=== PATIENT | male | born 1955 | race African-American/Black ===

== ENCOUNTER 2016-12-28 07:39 | Emergency (ER) | payer SELFPAY ==
[~2016-12-28] VITALS: Ht 190.5 cm; Wt 80.0 kg
[~2016-12-28 07:39] MED LIST: QUET100 PO
[2016-12-28 07:40] VITALS: BP 148/74; PULSE 75; RESP 12; TEMP 98.3; O2SAT 97
--- NOTE | 2016-12-28 08:00 | PD ---
HPI Chief Complaint: Psychiatric Symptoms Time Seen by Provider: 07:54 Travel History International Travel<30 days: No Contact w/Intl Traveler<30days: No Traveled to known affect area: No History of Present Illness HPI Patient is a 61-year-old male who presents to emergency room with complaints of depression and suicidal ideation. Patient reports that he had been clean of drugs and alcohol and recently began using again as he has had a lot going on in his life. Patient reports that he lost his apartment, reports that his is in intermediate, patient reports that all this has left him to use drugs and alcohol. Patient reports that he used cocaine last night as well as drink alcohol, reports that he is suicidal with no active plan for SI. Patient requesting help with this time. PFSH Past Medical History Autoimmune Disease: No Blood Disorders: No Anxiety: Yes Depression: Yes Cancer: No Cardiovascular Problems: No COPD: Yes Diabetes: No Diminished Hearing: No Endocrine: No Genitourinary: No Immune Disorder: No Musculoskeletal: No Neurologic: No Psychiatric: Yes (Per patient, "since he was young") Reproductive: No Respiratory: Yes Immunizations Current: Yes Seizures: No Thyroid Disease: No Past Surgical History Abdominal Surgery: Yes (UMBILICAL HERNIA REPAIR A CHILD) Other Surgery: Yes (INGUINAL HERNIA) Family History Family History: Negative Social History Alcohol Use: Yes Tobacco Use: Yes (1/2 PPD) Substance Use: Yes Allergies-Medications (Allergen,Severity, Reaction): Coded Allergies: No Known Allergies (Verified , 12/28/16) Reported Meds & Prescriptions Reported Meds & Active Scripts Active Quetiapine Fumarate 100 Mg Tab 100 Mg PO HS 30 Days Review of Systems General / Constitutional: No: Fever Eyes: No: Visual changes HENT: No: Headaches Cardiovascular: No: Chest Pain or Discomfort Respiratory: No: Shortness of Breath Gastrointestinal: No: Abdominal Pain Genitourinary: No: Dysuria Musculoskeletal: No: Pain Skin: No Rash Neurologic: No: Weakness Psychiatric: Positive: Anxiety, Depression, Suicidal Ideations, Substance Abuse Endocrine: No: Polydipsia Hematologic/Lymphatic: No: Easy Bruising Physical Exam Narrative GENERAL: No acute distress, nontoxic SKIN: Warm and dry. HEAD: Atraumatic. Normocephalic. EYES: Pupils equal and round. No scleral icterus. No injection or drainage. ENT: No nasal bleeding or discharge. Mucous membranes pink and moist. NECK: Trachea midline. No JVD. CARDIOVASCULAR: Regular rate and rhythm. No murmur appreciated. RESPIRATORY: No accessory muscle use. Clear to auscultation. Breath sounds equal bilaterally. GASTROINTESTINAL: Abdomen soft, non-tender, nondistended. Hepatic and splenic margins not palpable. MUSCULOSKELETAL: No obvious deformities. No clubbing. No cyanosis. No edema. NEUROLOGICAL: Awake and alert. No obvious cranial nerve deficits. Motor grossly within normal limits. Normal speech. PSYCHIATRIC: Depressed, positive for suicidal aerations, negative for homicidal ideations Data Data Last Documented VS Vital Signs Date Time Temp Pulse Resp B/P Pulse Ox O2 Delivery O2 Flow Rate FiO2 12/28/16 07:40 98.3 75 12 148/74 97 Room Air Orders Complete Blood Count With Diff (12/28/16 07:56) Comprehensive Metabolic Panel (12/28/16 07:56) Psych Screen (12/28/16 07:56) Alcohol (Ethanol) (12/28/16 07:56) Salicylates (Aspirin) (12/28/16 07:56) Tylenol (Acetaminophen) (12/28/16 07:56) Drug Screen, Random Urine (12/28/16 07:56) Labs Laboratory Tests Test 12/28/16 08:05 White Blood Count 6.8 TH/MM3 Red Blood Count 3.77 MIL/MM3 Hemoglobin 12.1 GM/DL Hematocrit 35.9 % Mean Corpuscular Volume 95.1 FL Mean Corpuscular Hemoglobin 32.2 PG Mean Corpuscular Hemoglobin 33.8 % Concent Red Cell Distribution Width 13.1 % Platelet Count 217 TH/MM3 Mean Platelet Volume 8.2 FL Neutrophils (%) (Auto) 62.7 % Lymphocytes (%) (Auto) 22.8 % Monocytes (%) (Auto) 7.5 % Eosinophils (%) (Auto) 6.2 % Basophils (%) (Auto) 0.8 % Neutrophils # (Auto) 4.3 TH/MM3 Lymphocytes # (Auto) 1.6 TH/MM3 Monocytes # (Auto) 0.5 TH/MM3 Eosinophils # (Auto) 0.4 TH/MM3 Basophils # (Auto) 0.1 TH/MM3 CBC Comment DIFF FINAL Differential Comment Sodium Level 134 MEQ/L Potassium Level 4.6 MEQ/L Chloride Level 102 MEQ/L Carbon Dioxide Level 23.3 MEQ/L Anion Gap 9 MEQ/L Blood Urea Nitrogen 26 MG/DL Creatinine 1.97 MG/DL Estimat Glomerular Filtration 42 ML/MIN Rate Random Glucose 72 MG/DL Calcium Level 9.0 MG/DL Total Bilirubin 1.0 MG/DL Aspartate Amino Transf 144 U/L (AST/SGOT) Alanine Aminotransferase 73 U/L (ALT/SGPT) Alkaline Phosphatase 80 U/L Total Protein 8.8 GM/DL Albumin 3.4 GM/DL Salicylates Level LESS THAN 1.7 MG/DL Acetaminophen Level LESS THAN 2.0 MCG/ML Ethyl Alcohol Level LESS THAN 3 MG/DL MDM Medical Decision Making Medical Screen Exam Complete: Yes Emergency Medical Condition: Yes Interpretation(s) NSR at 72bpm,qt/qtc: 430/455, no acute st or t wave changes Vital Signs Date Time Temp Pulse Resp B/P Pulse Ox O2 Delivery O2 Flow Rate FiO2 12/28/16 07:40 98.3 75 12 148/74 97 Room Air Differential Diagnosis Drug abuse, electrolyte abnormality, depression, suicidal ideation Narrative Course Patient is a 61-year-old male who presents to emergency room with complaints of suicidal evaluation. Patient reports that he relapsed and used a bunch of drugs as well as drank alcohol last night. Patient reports that he is suicidal with no active plan for suicide. Denies homicidal ideation. Patient here for help. Psychiatric screening labs ordered. Once medically cleared, will have patient seen by psychiatric screeners. Diagnosis Primary Impression: Depression Qualified Code: F32.9 - Depression, unspecified depression type Additional Impressions: Drug abuse Suicidal ideations Renal insufficiency Emmy Benjamin DO Dec 28, 2016 08:00
[2016-12-28 08:44] LABS: AUTOMATED NEUTROPHIL # 4.3 TH/MM3 (1.8-7.7); BASOPHIL # 0.1 TH/MM3 (0-0.2); BASOPHIL % 0.8 % (0.0-2.0); EOSINOPHIL # 0.4 TH/MM3 (0-0.4); EOSINOPHIL % 6.2 % (0.0-4.0); HEMATOCRIT 35.9 % (39.0-51.0); HEMO FLAGS DIFF FINAL; LYMPH % 22.8 % (9.0-44.0); LYMPHOCYTE # 1.6 TH/MM3 (1.0-4.8); MEAN CELL VOLUME 95.1 FL (80.0-100.0); MEAN CORPUSCULAR HEMOGLOBIN 32.2 PG (27.0-34.0); MEAN CORPUSCULAR HGB CONC 33.8 % (32.0-36.0); MONO % 7.5 % (0.0-8.0); NEUT % 62.7 % (16.0-70.0); PLATELET COUNT 217 TH/MM3 (150-450); RED BLOOD COUNT 3.77 MIL/MM3 (4.50-5.90); RED CELL DISTRIBUTION WIDTH 13.1 % (11.6-17.2); WHITE BLOOD COUNT 6.8 TH/MM3 (4.0-11.0)
[2016-12-28 09:07] LABS: ALKALINE PHOSPHATASE 80 U/L (45-117)
[2016-12-28 09:12] LABS: ACETAMINOPHEN LESS THAN 2.0 MCG/ML (10.0-30.0); ALT (GPT) 73 U/L (12-78); ANION GAP 9 MEQ/L (5-15); AST (GOT) 144 U/L (15-37); BICARBONATE 23.3 MEQ/L (21.0-32.0); BLOOD UREA NITROGEN 26 MG/DL (7-18); CHLORIDE 102 MEQ/L (98-107); GLOMERULAR FILTRATION RATE 42 ML/MIN (>89); POTASSIUM 4.6 MEQ/L (3.5-5.1); SODIUM (NA) 134 MEQ/L (136-145)
[2016-12-28 11:09] LABS: AMPHETAMINE, URINE NEG (NEG); BARBITURATES, URINE NEG (NEG); COCAINE, URINE POS (NEG)
--- NOTE | 2016-12-28 11:52 | PD ---
History of Present Illness Chief Complaint: Psychiatric Symptoms Time Seen by Provider: 11:30 Travel History International Travel<30 Days: No Contact w/Intl Traveler<30days: No Known affected area: No Legal Status Legal Status: Voluntary History of Present Illness: History of Present Illness HPI Patient is a 61-year-old male with history of substance abuse and substance induced mood disorder who presents to emergency room on a voluntary basis with complaints of depression and suicidal ideation. As per ED documentation included in this report he states that he had been clean of drugs and alcohol and recently began using again as he has had a lot going on in his life. Patient reports that he lost his apartment, reports that his is in senior care, patient reports that all this has left him to use drugs and alcohol. Patient's current toxicology is positive for cocaine. As per EMR review he was last hospitalized at [facility] [place] and treated for drug induced mood disorder. He has not followed up with discharge and aftercare . Patient is seen in main ED. Awake, alert and oriented. Appropriate hygiene and grooming. Speech is clear and logical. Mood is reported as depressed. He denies any hallucinations, no delusions and no paranoia. He reports recent stressors including being in senior care, having lost his apartment and having to live with his mother. He reports that he gets into frequent arguments with his mother over his staying out as well as his continued drinking. he has been staying out and sleeping in the park. In terms of substance use he states that he had been clean and sober x 6 months and has recently began to drink as well as to smoke crack. He did not present any suicidal ideation, intent or plan. He did not present any homicidal ideation . When I began to discuss discharge as well as need for substance abuse treatment at [facility] he became angry and made statements such as " If I leave here I'm just going to come back". I will go out and bust my mother's windows. I'm tired of sleeping in the park. If she does not let me in the house I might even hurt her ". He does not appear to be homicidal but rather manipulating current situation in order to obtain [facility]cf. PFSH Past Medical History Autoimmune Disease: No Blood Disorders: No Anxiety: Yes Depression: Yes Cancer: No Cardiovascular Problems: No COPD: Yes Diabetes: No Diminished Hearing: No Endocrine: No Gastrointestinal Disorders: No Genitourinary: No Immune Disorder: No Implanted Vascular Access Dvce: No Musculoskeletal: No Neurologic: No Psychiatric: Yes (Per patient, "since he was young") Reproductive: No Respiratory: Yes Immunizations Current: Yes Seizures: No Thyroid Disease: No Past Surgical History Abdominal Surgery: Yes (UMBILICAL HERNIA REPAIR A CHILD) Other Surgery: Yes (INGUINAL HERNIA) Psychiatric History Psychiatric History Hx Psychiatric Treatment: Has been treated for subsstance induiced mood disorder History of Inpatient Treatment: Yes ([facility] [place] under the care of Dr. Mcclelland) Guns or firearms in home: No Social History male. Currently staying with his mother. in [facility]. Unemployed. Hx Alcohol Use: Yes Hx Tobacco Use: Yes (11/16 PPD) Hx Substance Use: Yes Substance Use Type: Alcohol, Crack, Marijuana, Amphetamines-Stimulants, Nicotine/Cigarettes, Prescription Medications, Benzos (Valium,Xanax), Heroin, Cocaine Hx of Substance Use Treatment: No Family Psychiatric History None reported Allergies-Medications (Allergen,Severity, Reaction): Coded Allergies: No Known Allergies (Verified , 12/28/16) Reported Meds & Prescriptions Reported Meds & Active Scripts Active Quetiapine Fumarate 100 Mg Tab 100 Mg PO HS 30 Days Review of Systems Except as stated in HPI: all other systems reviewed are Neg Psychiatric: COMPLAINS OF: Depression Exam Alert: Yes [place]: Person (ox4) Mood: Calm Affect: Euthymic Speech: Clear, Logical Eye Contact: Indirect Memory Intact: Comment (no gross abnormality) Hallucinations: Other (negative) Suicidal: Ideation (negative) Homicidal: Ideation (neagtive) Insight/Judgement poor. Poor MDM Medical Decision Making Medical Record Reviewed: Yes Assessment/Plan Patient with history of substance use disorder who is currently under the influence of cocaine. No psychosis, no marie and no suicidal or homicidal ideation, intent or plan. Patient at this time does not meet criteria for inpatient treatment but when I begin to discuss discharge patient states that if he is discharged he is going to his mother's house and " busting the windows as well as he may hurt her and that I need to tell the police". At this time , out of caution , he will be transferred to [facility] for further observation. To be placed on [facility] list for treatment of substance abuse. Orders Complete Blood Count With Diff (12/28/16 07:56) Comprehensive Metabolic Panel (12/28/16 07:56) Psych Screen (12/28/16 07:56) Alcohol (Ethanol) (12/28/16 07:56) Salicylates (Aspirin) (12/28/16 07:56) Tylenol (Acetaminophen) (12/28/16 07:56) Drug Screen, Random Urine (12/28/16 07:56) Electrocardiogram (12/28/16 08:06) Results Vital Signs Date Time Temp Pulse Resp B/P Pulse Ox O2 Delivery O2 Flow Rate FiO2 12/28/16 11:09 78 12/28/16 07:40 98.3 75 12 148/74 97 Room Air Laboratory Tests Test 12/28/16 12/28/16 08:05 10:15 White Blood Count 6.8 Red Blood Count 3.77 Hemoglobin 12.1 Hematocrit 35.9 Mean Corpuscular Volume 95.1 Mean Corpuscular Hemoglobin 32.2 Mean Corpuscular Hemoglobin 33.8 Concent Red Cell Distribution Width 13.1 Platelet Count 217 Mean Platelet Volume 8.2 Neutrophils (%) (Auto) 62.7 Lymphocytes (%) (Auto) 22.8 Monocytes (%) (Auto) 7.5 Eosinophils (%) (Auto) 6.2 Basophils (%) (Auto) 0.8 Neutrophils # (Auto) 4.3 Lymphocytes # (Auto) 1.6 Monocytes # (Auto) 0.5 Eosinophils # (Auto) 0.4 Basophils # (Auto) 0.1 CBC Comment DIFF FINAL Differential Comment Sodium Level 134 Potassium Level 4.6 Chloride Level 102 Carbon Dioxide Level 23.3 Anion Gap 9 Blood Urea Nitrogen 26 Creatinine 1.97 Estimat Glomerular Filtration 42 Rate Random Glucose 72 Calcium Level 9.0 Total Bilirubin 1.0 Aspartate Amino Transf 144 (AST/SGOT) Alanine Aminotransferase 73 (ALT/SGPT) Alkaline Phosphatase 80 Total Protein 8.8 Albumin 3.4 Salicylates Level LESS THAN 1.7 Acetaminophen Level LESS THAN 2.0 Ethyl Alcohol Level LESS THAN 3 Urine Opiates Screen NEG Urine Barbiturates Screen NEG Urine Amphetamines Screen NEG Urine Benzodiazepines Screen NEG Urine Cocaine Screen POS Urine Cannabinoids Screen NEG Diagnosis Primary Impression: Cocaine abuse Additional Impression: Substance induced mood disorder Psychiatrically Cleared: Yes Problem Qualifiers [place] Bland Dec 28, 2016 11:52
[2016-12-28 16:19] VITALS: BP 151/85; PULSE 68; RESP 16; TEMP 96.6; O2SAT 100
[2016-12-28 22:08] VITALS: BP 137/68; PULSE 59; RESP 18; O2SAT 98
[2016-12-29 02:00] VITALS: BP 118/70; PULSE 63; RESP 18; O2SAT 97
[2016-12-29 06:12] VITALS: BP 148/73; PULSE 56; RESP 18; O2SAT 98
--- NOTE | 2016-12-29 08:20 | HHI.PYPN ---
Subjective Remarks Miss Bland Documentation reviewed :"Patient is a 61-year-old male with history of substance abuse and substance induced mood disorder who presents to emergency room on a voluntary basis with complaints of depression and suicidal ideation. As per ED documentation included in this report he states that he had been clean of drugs and alcohol and recently began using again as he has had a lot going on in his life. Patient reports that he lost his apartment, reports that his is in alf, patient reports that all this has left him to use drugs and alcohol. Patient's current toxicology is positive for cocaine. As per EMR review he was last hospitalized at [facility] in sep 2015 and treated for drug induced mood disorder. He has not followed up with discharge and aftercare .Patient is seen in main ED. Awake, alert and oriented. Appropriate hygiene and grooming. Speech is clear and logical. Mood is reported as depressed. He denies any hallucinations, no delusions and no paranoia. He reports recent stressors including being in alf, having lost his apartment and having to live with his mother. He reports that he gets into frequent arguments with his mother over his staying out as well as his continued drinking. he has been staying out and sleeping in the park. In terms of substance use he states that he had been clean and sober x 6 months and has recently began to drink as well as to smoke crack. He did not present any suicidal ideation, intent or plan. He did not present any homicidal ideation . When I began to discuss discharge as well as need for substance abuse treatment at [facility] he became angry and made statements such as " If I leave here I'm just going to come back". I will go out and bust my mother's windows. I'm tired of sleeping in the park. If she does not let me in the house I might even hurt her ". He does not appear to be homicidal but rather manipulating current situation in order to obtain [facility]." On psychiatric reevaluation this morning the patient was found sleeping, but easily arousable, patient explains that today he feels better, he says that he would like to be helped with housing, medications and outpatient psychiatric follow-ups. He says that he has been depressed for the last 2-3 days, his is now in alf, he had an argument with his mother and and she threw him out of her house and he is now homeless. He says that he has been intermittently feeling suicidal and homicidal, but no specific plan or intentions. He specifies that he has been feeling this way for over 40 years "and that is the reason I being in alf over 8 times already". He refused to elaborate about the reason of his incarceration. At this rate moment patient denies suicidal ideation, denies homicidal ideation, denies visual and auditory hallucinations. He is oriented 3. No gross cognitive impairment observed. Review of Systems Constitutional: DENIES: Diaphoretic episodes, Fatigue, Fever, Weight gain, Weight loss, Chills, Dizziness, Change in appetite, Night Sweats Endocrine: DENIES: Heat/cold intolerance, Polydipsia, Polyuria, Polyphagia Eyes: DENIES: Blurred vision, Diplopia, Eye inflammation, Eye pain, Vision loss , Photosensitivity, Double Vision Ears, nose, mouth, throat: DENIES: Tinnitus, Hearing loss, Vertigo, Nasal discharge, Oral lesions, Throat pain, Hoarseness, Ear Pain, Running Nose, Epistaxis, Sinus Pain, Toothache, Odynophagia Respiratory: DENIES: Apneas, Cough, Snoring, Wheezing, Hemoptysis, Sputum production, Shortness of breath Cardiovascular: DENIES: Chest pain, Palpitations, Syncope, Dyspnea on Exertion , PND, Lower Extremity Edema, Orthopnea, Claudication Musculoskeletal: DENIES: Joint pain, Muscle aches, Stiffness, Joint Swelling, Back pain, Neck pain Integumentary: DENIES: Abnormal pigmentation, Nail changes, Pruritus, Rash Hematologic/lymphatic: DENIES: Bruising, Lymphadenopathy Immunologic/allergic: DENIES: Eczema, Urticaria Neurologic: DENIES: Abnormal gait, Headache, Localized weakness, Paresthesias, Seizures, Speech Problems, Tremor, Poor Balance Psychiatric: DENIES: Anxiety, Confusion, Mood changes, Depression, Hallucinations, Agitation, Suicidal Ideation, Homicidal Ideation, Delusions Objective Alert: Yes [place]: Person (ox4), Place, Date, Situation Mood: Calm Affect: Euthymic Memory Intact: Comment (no gross abnormality) Hallucinations: Other (negative) Delusions: No Delusion Type: Other (no-observed) Suicidal: Ideation (negative) Homicidal: Ideation (neagtive) Insight/Judgement Fair Labs Test 12/28/16 12/28/16 08:05 10:15 White Blood Count 6.8 TH/MM3 Red Blood Count 3.77 MIL/MM3 Hemoglobin 12.1 GM/DL Hematocrit 35.9 % Mean Corpuscular Volume 95.1 FL Mean Corpuscular Hemoglobin 32.2 PG Mean Corpuscular Hemoglobin 33.8 % Concent Red Cell Distribution Width 13.1 % Platelet Count 217 TH/MM3 Mean Platelet Volume 8.2 FL Neutrophils (%) (Auto) 62.7 % Lymphocytes (%) (Auto) 22.8 % Monocytes (%) (Auto) 7.5 % Eosinophils (%) (Auto) 6.2 % Basophils (%) (Auto) 0.8 % Neutrophils # (Auto) 4.3 TH/MM3 Lymphocytes # (Auto) 1.6 TH/MM3 Monocytes # (Auto) 0.5 TH/MM3 Eosinophils # (Auto) 0.4 TH/MM3 Basophils # (Auto) 0.1 TH/MM3 CBC Comment DIFF FINAL Differential Comment Sodium Level 134 MEQ/L Potassium Level 4.6 MEQ/L Chloride Level 102 MEQ/L Carbon Dioxide Level 23.3 MEQ/L Anion Gap 9 MEQ/L Blood Urea Nitrogen 26 MG/DL Creatinine 1.97 MG/DL Estimat Glomerular Filtration 42 ML/MIN Rate Random Glucose 72 MG/DL Calcium Level 9.0 MG/DL Total Bilirubin 1.0 MG/DL Aspartate Amino Transf 144 U/L (AST/SGOT) Alanine Aminotransferase 73 U/L (ALT/SGPT) Alkaline Phosphatase 80 U/L Total Protein 8.8 GM/DL Albumin 3.4 GM/DL Salicylates Level LESS THAN 1.7 MG/DL Acetaminophen Level LESS THAN 2.0 MCG/ML Ethyl Alcohol Level LESS THAN 3 MG/DL Urine Opiates Screen NEG Urine Barbiturates Screen NEG Urine Amphetamines Screen NEG Urine Benzodiazepines Screen NEG Urine Cocaine Screen POS Urine Cannabinoids Screen NEG Vitals/IOs Vital Signs Date Time Temp Pulse Resp B/P Pulse Ox O2 Delivery O2 Flow Rate FiO2 12/29/16 06:12 56 18 148/73 98 Room Air 12/28/16 16:19 96.6 Assessment & Plan Problem List: (1) Substance induced mood disorder Assessment & Plan: 61-year-old man, but , unemployed, homeless, with psychiatric history of depression, numerous hospitalizations, numerous ER visits usually due to drug related issues, alcohol , cocaine, marijuana use disorder, history of multiple incarcerations, aggressive and antisocial behavior, usually noncompliance with medication and psychiatric recommendations, previous suicidal attempts, no significant medical history, who came voluntarily to the ER requesting psychiatric help and complaining of depression for 2 or 3 days since he has been homeless. On psychiatric evaluation this morning the patient reports that he feels already better, he reports chronic suicidal/homicidal thoughts, but not intention or plan at this moment. Patient is demanding director social service such as placement, help with food stamps, prescriptions and outpatient follow-ups. He was fully explain about our limitations about his expectations and he became irritable and upset, but he was verbally de-escalated and reassured. Patient also was oriented about the negative effect of using drugs in his mood and behavior, but also in the achievement of realistic goals and interaction with family and people in the community. He does not meet criteria for psychiatric admission at this moment. His chronic suicidal/homicidal ideation, as well as his poor impulse control, mood liability and poor judgment are part of his character structure, which is quite consistent with antisocial personality disorder, and continues use of substances. He would really benefit of outpatient psychiatric care, long-term drug rehabilitation and a steady counseling. Patient would be discharge with outpatient psychiatric source package. ICD Code: F19.94 Assessment & Plan Estimated LOS: days Justification for Cont. Inpt. He does not meet criteria for psychiatric admission at this moment Remi Burleson MD Dec 29, 2016 08:20
--- NOTE | 2016-12-29 08:37 | EKG ---
Date Performed: 12/28/2016 Time Performed: 08:06:05 PTAGE: 61 years EKG: Sinus rhythm NORMAL ECG PREVIOUS TRACING : 09/22/2015 16.44 Compared to prior tracing no significant change DOCTOR: Matteo Montes Interpretating Date/Time 12/29/2016 08:35:51
== END 2016-12-29 09:25 | disposition home or self-care (01) ==
LOC: NEPC 07:39 → NEPJ 12-29 09:25
DX: F19.94 Other psychoactive substance use, unspecified with psychoactive substance-induced mood disorder (principal); F14.10 Cocaine abuse, uncomplicated; J44.9 Chronic obstructive pulmonary disease, unspecified; F17.210 Nicotine dependence, cigarettes, uncomplicated; N28.9 Disorder of kidney and ureter, unspecified
CPT/HCPCS: 80053; 80307; 80320; 80329; 85025; 93005; G0480

== ENCOUNTER 2017-04-18 09:29 | Emergency (ER) | payer SELFPAY ==
[~2017-04-18] VITALS: Ht 182.9 cm; Wt 78.0 kg
[2017-04-18 09:30] VITALS: BP 142/88; PULSE 76; RESP 20; TEMP 98.8; O2SAT 99
--- NOTE | 2017-04-18 09:55 | PD ---
HPI Chief Complaint: Cold / Flu Symptoms Time Seen by Provider: 21:50 Travel History International Travel<30 days: No Contact w/Intl Traveler<30days: No Traveled to known affect area: No History of Present Illness HPI This is a 61-year-old [id number] history smoker presents for evaluation of cough. Symptoms started 2 weeks ago. The cough was initially productive with green phlegm, it is now more of a dry cough. Associated with hoarse voice, burning sensation in throat that is exacerbated by coughing. He has been using [id number] Goody's powder, he has not really used any cough suppressant/ expectorant medication for symptom relief. Denies sick contacts, recent travel , eversion or chills, CP/SOB, nausea or vomiting, abdominal pain. Denies significant past medical history per chart review she has a questionable history of COPD. He does not have a primary care physician. No other complaints. PFSH Past Medical History Autoimmune Disease: No Blood Disorders: No Anxiety: Yes Depression: Yes Cancer: No Cardiovascular Problems: No COPD: Yes Diabetes: No Diminished Hearing: Yes ([facility]) Endocrine: No Gastrointestinal Disorders: No Genitourinary: No Immune Disorder: No Implanted Vascular Access Dvce: No Musculoskeletal: No Neurologic: No Psychiatric: Yes (Per patient, "since he was young") Reproductive: No Respiratory: Yes Immunizations Current: Yes Seizures: No Thyroid Disease: No Tetanus Vaccination: Unknown Influenza Vaccination: No Past Surgical History Abdominal Surgery: Yes (UMBILICAL HERNIA REPAIR A CHILD) Other Surgery: Yes (INGUINAL HERNIA) Social History Alcohol Use: Yes Tobacco Use: Yes (1/2 PPD) Substance Use: Yes (MARIJUANA ONCE A WEEK) Allergies-Medications (Allergen,Severity, Reaction): Coded Allergies: No Known Allergies (Verified , 04/18/17) Reported Meds & Prescriptions Reported Meds & Active Scripts Active Azithromycin 250 Mg Tab 250 Mg PO DIRECTED Take 2 tabs (500 mg) on day 1 then 1 tab daily x 4 days. Review of Systems Except as stated in HPI: all other systems reviewed are Neg Physical Exam Narrative GENERAL: Well-developed well-nourished male in no acute distress SKIN: Warm and dry. HEAD: Atraumatic. Normocephalic. EYES: Pupils equal and round. No scleral icterus. No injection or drainage. ENT: No nasal bleeding or discharge. Mucous membranes pink and moist. NECK: Trachea midline. No JVD. CARDIOVASCULAR: Regular rate and rhythm. No murmur appreciated. RESPIRATORY: No accessory muscle use. Clear to auscultation. Breath sounds equal bilaterally. No crackles no wheezing or rhonchi GASTROINTESTINAL: Abdomen soft, non-tender, nondistended. Hepatic and splenic margins not palpable. MUSCULOSKELETAL: No obvious deformities. No edema. NEUROLOGICAL: Awake and alert. No obvious cranial nerve deficits. Motor grossly within normal limits. Normal speech. PSYCHIATRIC: Appropriate mood and affect; insight and judgment normal. Data Data Last Documented VS Vital Signs Date Time Temp Pulse Resp B/P Pulse Ox O2 Delivery O2 Flow Rate FiO2 04/18/17 09:47 Room Air 04/18/17 09:30 98.8 76 20 142/88 99 Orders Chest, Pa & Lat (04/18/17 ) Ct Thorax/ Chest Wo Iv Contras (04/18/17 ) MDM Medical Decision Making Medical Screen Exam Complete: Yes Emergency Medical Condition: Yes Medical Record Reviewed: Yes Differential Diagnosis Bronchitis, COPD, pneumonia, bronchiectasis, malignancy Narrative Course 61-year-old male smoker presents with 2 weeks of cough. Initially the cough is productive with green sputum production, now more of a dry cough with associated hoarse voice, burning sensation in the throat when coughing. Physical examination is reassuring. His lungs sound clear. He is not tachypneic, hypoxic, tachycardic, febrile. Plan is for chest x-ray. Chest x-ray reveals a nodular density in the right upper lung, radiologist recommends noncontrast CT. Unfortunately patient currently has no insurance, no way for follow-up. CT of the thorax been ordered here. The patient was given information in regards to how to sign up for patient assistance for outpatient follow-up. CT of the thorax is negative for mass. Radiologist feels that the density noticed on the chest x-ray likely represents osseous shadow. Therefore the patient is stable for discharge, he is being given a prescription for azithromycin for his bronchitis in the setting of questionable COPD history. Diagnosis Primary Impression: Bronchitis Additional Instructions: Medication as prescribed. Avoid tobacco products. Follow-up with primary care physician. Return for any emergent medical conditions. Med/Other Pt SpecificInfo: Prescription(s) given Scripts Azithromycin 250 Mg [id number] Mg PO DIRECTED #6 TAB Ref 0 Take 2 tabs (500 mg) on day 1 then 1 tab daily x 4 days. Prov:Khadar Pichardo MD 04/18/17 Disposition: 01 DISCHARGE HOME Condition: Stable Sharath Kaplan Apr 18, 2017 09:55
--- NOTE | 2017-04-18 10:11 | RADRPT ---
EXAM DATE/TIME: 04/18/2017 09:59 [facility] COMPARISON: No previous studies available for comparison. INDICATIONS : Cough MEDICAL HISTORY : Chronic obstructive pulmonary disease. SURGICAL HISTORY : None. ENCOUNTER: Initial ACUITY: 2 weeks PAIN SCORE: 0/10 LOCATION: Bilateral chest FINDINGS: PA and lateral views of the chest. 1.5 cm nodular density in the right upper lung zone. Cardiomediast inal silhouette within normal limits. No evidence of pleural effusion or pneumothorax. CONCLUSION: Nodular density right upper lung. Recommend noncontrast chest CT to evaluate for pul monary nodule. Maik Melgoza MD on April 18, 2017 at 10:07 Board Certified Radiologist. This report was verified electronically.
[2017-04-18] MEDS ORDERED: AZIT250T3 PO (11:32)
--- NOTE | 2017-04-18 11:58 | RADRPT ---
EXAM DATE/TIME: 04/18/2017 11:03 [facility] COMPARISON: CHEST PA & LAT, April 18, 2017, 9:59. INDICATIONS : Chest pain and shortness of breath. RADIATION DOSE: 3.72 CTDIvol (mGy) MEDICAL HISTORY : Chronic obstructive pulmonary disease. Tuberculosis SURGICAL HISTORY : None. ENCOUNTER: Initial ACUITY: 1 day PAIN SCALE: 3/10 LOCATION: Bilateral chest TECHNIQUE: Volumetric scanning of the chest was performed. Using automated exposure control and adjustment of t he mA and/or kV according to patient size, radiation dose was kept as low as reasonably achievable to obtain optimal diagnostic quality images. FINDINGS: LUNGS: Mild tree in bud opacity in the inferior left lower lobe. The lungs are otherwise clear. Chest x-ray density likely corresponded to superimposed osseous shadows. PLEURAE: There is no pleural thickening or pleural effusion. MEDIASTINUM: The heart and great vessels demonstrate no acute abnormality. There is no mediastinal or hilar lymph adenopathy. AXILLAE: Within normal limits. No lymphadenopathy. MUSCULOSKELETAL: Within normal limits for patient age. MISCELLANEOUS: The visualized upper abdominal organs demonstrate no acute abnormality. CONCLUSION: 1. No evidence of pulmonary mass. Chest x-ray density in the right upper lung zone likely resent in s uperimposed osseous shadows. 2. Minimal tree in bud opacity at the left lung base likely representing minimal inflammatory change. Maik Melgoza MD on April 18, 2017 at 11:53 Board Certified Radiologist. This report was verified electronically.
== END 2017-04-18 12:20 | disposition home or self-care (01) ==
LOC: NEPD 09:29
DX: J40 Bronchitis, not specified as acute or chronic (principal); F17.210 Nicotine dependence, cigarettes, uncomplicated
CPT/HCPCS: 71020; 71250; 99284

== ENCOUNTER 2017-06-29 09:19 | Emergency (ER) | payer SELFPAY ==
[~2017-06-29] VITALS: Ht 182.9 cm; Wt 78.0 kg
[~2017-06-29 09:19] MED LIST changes: +AZIT250T3 PO; -QUET100 PO
[2017-06-29 09:21] VITALS: BP 131/73; PULSE 76; RESP 16; TEMP 98.6; O2SAT 97
[2017-06-29] MEDS ORDERED: POTA-163 PO (09:35)
[2017-06-29 09:36] VITALS: BP 148/79; PULSE 65; RESP 19; TEMP 98.2; O2SAT 98
[2017-06-29] MEDS ORDERED: SODIUM CHLOR 0.9% 1000 ML INJ 1,000 ML IV SCH (09:55)
[2017-06-29 09:58] VITALS: BP 148/79; PULSE 69; RESP 19; TEMP 98.2; O2SAT 99
[2017-06-29] MEDS ORDERED: LIDOCAINE VISCOUS 2% SOLN 15 ML UDC PO ONE (10:00)
[2017-06-29] MEDS ORDERED: ALUMINUM/MAGNESIUM/SIMETH 30 ML CUP PO ONE (10:00)
[2017-06-29] MEDS ORDERED: SODIUM CHLORIDE 0.9% FLUSH 10 ML FLUSH IV FLUSH PRN (10:00)
[2017-06-29] MEDS ORDERED: MORPHINE SULFATE 4 MG/ML INJ IV PUSH ONE (10:00)
[2017-06-29] MEDS ORDERED: ONDANSETRON HCL 4 MG/2 ML VIAL IVP ONE (10:00)
[2017-06-29 10:26] LABS: AUTOMATED NEUTROPHIL # 3.5 TH/MM3 (1.8-7.7); BASOPHIL # 0.1 TH/MM3 (0-0.2); EOSINOPHIL # 0.4 TH/MM3 (0-0.4); EOSINOPHIL % 6.8 % (0.0-4.0); HEMATOCRIT 40.3 % (39.0-51.0); HEMO FLAGS DIFF FINAL; LYMPH % 22.1 % (9.0-44.0); LYMPHOCYTE # 1.3 TH/MM3 (1.0-4.8); MEAN CELL VOLUME 97.4 FL (80.0-100.0); MEAN CORPUSCULAR HGB CONC 32.8 % (32.0-36.0); MONO % 10.9 % (0.0-8.0); NEUT % 59.2 % (16.0-70.0); PLATELET COUNT 213 TH/MM3 (150-450); RED BLOOD COUNT 4.13 MIL/MM3 (4.50-5.90); RED CELL DISTRIBUTION WIDTH 13.4 % (11.6-17.2); WHITE BLOOD COUNT 5.9 TH/MM3 (4.0-11.0)
[2017-06-29 10:40] LABS: ALT (GPT) 64 U/L (12-78)
[2017-06-29 10:42] LABS: ALKALINE PHOSPHATASE 75 U/L (45-117); TOTAL BILIRUBIN ADULT 0.6 MG/DL (0.2-1.0)
[2017-06-29 10:48] LABS: ANION GAP 5 MEQ/L (5-15); AST (GOT) 85 U/L (15-37); BICARBONATE 26.8 MEQ/L (21.0-32.0); BLOOD UREA NITROGEN 23 MG/DL (7-18); CHLORIDE 107 MEQ/L (98-107); GLOMERULAR FILTRATION RATE 47 ML/MIN (>89); SODIUM (NA) 139 MEQ/L (136-145)
[2017-06-29 10:50] LABS: POTASSIUM 5.1 MEQ/L (3.5-5.1)
[2017-06-29] MEDS ORDERED: FAMOTIDINE 20 MG/2 ML VIAL IV PUSH STA (10:56)
--- NOTE | 2017-06-29 10:56 | PD ---
HPI Chief Complaint: Hip Injury Time Seen by Provider: 09:49 Travel History International Travel<30 days: No Contact w/Intl Traveler<30days: No Traveled to known affect area: No History of Present Illness HPI The patient is a 62-year-old [place] male who presents to the emergency department for a 2 week history of abdominal pain. The patient complains of burning, epigastric abdominal pain that occasionally radiates to the back for the last 2 weeks. The patient denies any nausea, vomiting, diarrhea, or change in bowel habits. He does have a history of previous abdominal hernia repair, but denies any other abdominal surgeries. The patient's last bowel movement was last night, normal per the patient's report. The patient denies any known history of gastritis, peptic ulcer disease, pancreatitis, or gallstones. Symptoms are mild to moderate without any alleviating or exacerbating factors. The patient also complains of right hip pain intermittently for the last 6 months, occasionally states the right hip will "give out ". He denies any acute trauma. PFSH Past Medical History Autoimmune Disease: No Blood Disorders: No Anxiety: Yes Depression: Yes Cancer: No Cardiovascular Problems: No COPD: Yes Cerebrovascular Accident: Yes (tia) Diabetes: No Diminished Hearing: Yes ([place]) Endocrine: No Gastrointestinal Disorders: No Genitourinary: No Immune Disorder: No Implanted Vascular Access Dvce: No Musculoskeletal: No Neurologic: No Psychiatric: Yes (Per patient, "since he was young") Reproductive: No Respiratory: Yes Immunizations Current: Yes Seizures: No Thyroid Disease: No Tetanus Vaccination: Unknown Past Surgical History Abdominal Surgery: Yes (UMBILICAL HERNIA REPAIR A CHILD) Other Surgery: Yes (INGUINAL HERNIA) Social History Alcohol Use: Yes Tobacco Use: Yes (1/2 PPD) Substance Use: Yes (MARIJUANA ONCE A WEEK) Allergies-Medications (Allergen,Severity, Reaction): Coded Allergies: No Known Allergies (Verified , 06/29/17) Reported Meds & Prescriptions Reported Meds & Active Scripts Active Reported Potassium Chloride ER (Potassium Chloride) 20 Meq Tab 20 Meq PO DAILY Review of Systems Except as stated in HPI: all other systems reviewed are Neg Cardiovascular: No: Chest Pain or Discomfort Respiratory: No: Shortness of Breath Gastrointestinal: Positive: Abdominal Pain, No: Nausea, Vomiting, Diarrhea, Constipation Genitourinary: No: Dysuria Musculoskeletal: Positive: Pain Neurologic: No: Paresthesia, Sensory Disturbance Physical Exam Narrative GENERAL: Awake, alert, pleasant 62-year-old male who appears his stated age and is in no acute respiratory distress. SKIN: Focused skin assessment warm/dry. HEAD: Atraumatic. Normocephalic. EYES: No injection or drainage. ENT: No nasal bleeding or discharge. Mucous membranes pink and moist. NECK: Trachea midline. No JVD. CARDIOVASCULAR: Regular rate and rhythm. No murmur appreciated. RESPIRATORY: No accessory muscle use. Clear to auscultation. Breath sounds equal bilaterally. GASTROINTESTINAL: Abdomen soft, mild epigastric tenderness. Negative Farrar's. Negative McBurney's.. MUSCULOSKELETAL: Minimal tenderness of the lateral right hip. Patient is able flex the hip to 90, internal/external rotation of the hip minimal exacerbates the patient's pain. Positive right dorsalis pedal pulse. NEUROLOGICAL: Awake and alert. No obvious cranial nerve deficits. Motor grossly within normal limits. Normal speech. PSYCHIATRIC: Appropriate mood and affect; insight and judgment normal. Data Data Last Documented VS Vital Signs Date Time Temp Pulse Resp B/P Pulse Ox O2 Delivery O2 Flow Rate FiO2 06/29/17 09:58 98.2 69 19 148/79 99 Room Air Orders Complete Blood Count With Diff (06/29/17 09:55) Comprehensive Metabolic Panel (06/29/17 09:55) Lipase (06/29/17 09:55) Urinalysis - C+S If Indicated (06/29/17 09:55) Iv Access Insert/Monitor (06/29/17 09:55) Ecg Monitoring (06/29/17 09:55) Oximetry (06/29/17 09:55) Morphine Inj (Morphine Inj) (06/29/17 10:00) Ondansetron Inj (Zofran Inj) (06/29/17 10:00) Sodium Chlor 0.9% 1000 Ml Inj (Ns 1000 M (06/29/17 09:55) Sodium Chloride 0.9% Flush (Ns Flush) (06/29/17 10:00) Al-Mag Hy-Si 40-40-4 Mg/Ml Liq (Mag-Al P (06/29/17 10:00) Lidocaine 2% Viscous (Xylocaine 2% Visco (06/29/17 10:00) Pelvis, Ap Only (Routine) (06/29/17 ) Famotidine Inj (Pepcid Inj) (06/29/17 10:56) Sodium Chlor 0.9% 1000 Ml Inj (Ns 1000 M (06/29/17 11:15) Labs Laboratory Tests Test 06/29/17 06/29/17 10:10 10:25 White Blood Count 5.9 TH/MM3 Red Blood Count 4.13 MIL/MM3 Hemoglobin 13.2 GM/DL Hematocrit 40.3 % Mean Corpuscular Volume 97.4 FL Mean Corpuscular Hemoglobin 32.0 PG Mean Corpuscular Hemoglobin 32.8 % Concent Red Cell Distribution Width 13.4 % Platelet Count 213 TH/MM3 Mean Platelet Volume 8.5 FL Neutrophils (%) (Auto) 59.2 % Lymphocytes (%) (Auto) 22.1 % Monocytes (%) (Auto) 10.9 % Eosinophils (%) (Auto) 6.8 % Basophils (%) (Auto) 1.0 % Neutrophils # (Auto) 3.5 TH/MM3 Lymphocytes # (Auto) 1.3 TH/MM3 Monocytes # (Auto) 0.6 TH/MM3 Eosinophils # (Auto) 0.4 TH/MM3 Basophils # (Auto) 0.1 TH/MM3 CBC Comment DIFF FINAL Differential Comment Sodium Level 139 MEQ/L Potassium Level 5.1 MEQ/L Chloride Level 107 MEQ/L Carbon Dioxide Level 26.8 MEQ/L Anion Gap 5 MEQ/L Blood Urea Nitrogen 23 MG/DL Creatinine 1.80 MG/DL Estimat Glomerular Filtration 47 ML/MIN Rate Random Glucose 108 MG/DL Calcium Level 8.9 MG/DL Total Bilirubin 0.6 MG/DL Aspartate Amino Transf 85 U/L (AST/SGOT) Alanine Aminotransferase 64 U/L (ALT/SGPT) Alkaline Phosphatase 75 U/L Total Protein 7.5 GM/DL Albumin 2.9 GM/DL Lipase 730 U/L Urine Color YELLOW Urine Turbidity CLEAR Urine pH 5.5 Urine Specific [place] 1.020 Urine Protein TRACE mg/dL Urine Glucose (UA) NEG mg/dL Urine Ketones NEG mg/dL Urine Occult Blood NEG Urine Nitrite NEG Urine Bilirubin NEG Urine Urobilinogen LESS THAN 2.0 MG/DL Urine Leukocyte Esterase NEG Urine RBC LESS THAN 1 /hpf Urine WBC LESS THAN 1 /hpf Urine Squamous Epithelial <1 /hpf Cells Urine Mucus FEW /lpf Microscopic Urinalysis Comment CULT NOT INDICATED MDM Medical Decision Making Medical Screen Exam Complete: Yes Emergency Medical Condition: Yes Medical Record Reviewed: Yes Interpretation(s) Laboratory Tests Test 06/29/17 06/29/17 10:10 10:25 White Blood Count 5.9 TH/MM3 Red Blood Count 4.13 MIL/MM3 Hemoglobin 13.2 GM/DL Hematocrit 40.3 % Mean Corpuscular Volume 97.4 FL Mean Corpuscular Hemoglobin 32.0 PG Mean Corpuscular Hemoglobin 32.8 % Concent Red Cell Distribution Width 13.4 % Platelet Count 213 TH/MM3 Mean Platelet Volume 8.5 FL Neutrophils (%) (Auto) 59.2 % Lymphocytes (%) (Auto) 22.1 % Monocytes (%) (Auto) 10.9 % Eosinophils (%) (Auto) 6.8 % Basophils (%) (Auto) 1.0 % Neutrophils # (Auto) 3.5 TH/MM3 Lymphocytes # (Auto) 1.3 TH/MM3 Monocytes # (Auto) 0.6 TH/MM3 Eosinophils # (Auto) 0.4 TH/MM3 Basophils # (Auto) 0.1 TH/MM3 CBC Comment DIFF FINAL Differential Comment Sodium Level 139 MEQ/L Potassium Level 5.1 MEQ/L Chloride Level 107 MEQ/L Carbon Dioxide Level 26.8 MEQ/L Anion Gap 5 MEQ/L Blood Urea Nitrogen 23 MG/DL Creatinine 1.80 MG/DL Estimat Glomerular Filtration 47 ML/MIN Rate Random Glucose 108 MG/DL Calcium Level 8.9 MG/DL Total Bilirubin 0.6 MG/DL Aspartate Amino Transf 85 U/L (AST/SGOT) Alanine Aminotransferase 64 U/L (ALT/SGPT) Alkaline Phosphatase 75 U/L Total Protein 7.5 GM/DL Albumin 2.9 GM/DL Lipase 730 U/L Urine Color YELLOW Urine Turbidity CLEAR Urine pH 5.5 Urine Specific [place] 1.020 Urine Protein TRACE mg/dL Urine Glucose (UA) NEG mg/dL Urine Ketones NEG mg/dL Urine Occult Blood NEG Urine Nitrite NEG Urine Bilirubin NEG Urine Urobilinogen LESS THAN 2.0 MG/DL Urine Leukocyte Esterase NEG Urine RBC LESS THAN 1 /hpf Urine WBC LESS THAN 1 /hpf Urine Squamous Epithelial <1 /hpf Cells Urine Mucus FEW /lpf Microscopic Urinalysis Comment CULT NOT INDICATED Last Impressions Pelvis X-Ray 06/29/17 0000 Signed Impressions: Service Date/Time: Thursday, June 29, 2017 10:44 - CONCLUSION: Degenerative changes in the hips bilaterally. No acute fracture identified. Khadar Em MD Differential Diagnosis Differential diagnosis includes pancreatitis, gastritis, peptic ulcer disease, GERD, hiatal hernia, biliary colic, right hip fracture, right hip dislocation, right hip contusion, right hip strain. Narrative Course IV was established, labs were drawn and sent, and the patient was placed on cardiac telemetry monitoring and continuous pulse oximetry monitoring. The patient was administered morphine, Zofran, GI cocktail, and Pepcid. The patient 's lipase is elevated at 780 consistent with pancreatitis. Creatinine is mildly elevated at 1.8. The patient was administered a second dose of IV fluids. AST is elevated greater than ALT, most likely alcohol-related. X-rays revealed degenerative changes, no acute fracture. The patient was reevaluated at 12 PM, his symptoms have improved. The patient is advised to decrease alcohol intake, take medications as directed, to follow-up with a primary physician. Diagnosis Primary Impression: Pancreatitis Qualified Code: K85.20 - Alcohol-induced acute pancreatitis, unspecified complication status Additional Impression: Right hip pain Patient Instructions: General Instructions Additional Instructions: Medications as directed. Decrease alcohol intake. Follow-up with your primary physician. Return if symptoms worsen or progress. Please provide the patient a copy of his labs and x-ray results at discharge. Med/Other Pt SpecificInfo: Prescription(s) given Scripts Ranitidine (Zantac 150 Maximum Strength)150 Mg [id number] Mg PO BID 30 Days Prov:Jacques Briones MD 06/29/17 Promethazine (Phenergan)25 Mg [id number] Mg PO Q6H PRN (NAUSEA OR VOMITING) #10 TAB Ref 0 Prov:Jacques Briones MD 06/29/17 Hydrocodone-Acetaminophen ([place])5-325 mg Tab1 Tab PO Q6H PRN (PAIN) #15 TAB Ref 0 Prov:Jacques Briones MD 06/29/17 Disposition: 01 DISCHARGE HOME Condition: Stable Jacques Briones MD Jun 29, 2017 10:56
[2017-06-29 10:59] LABS: BLOOD, URINE NEG (NEG); COMMENT (UR) CULT NOT INDICATED; CULTURE IF INDICATED CULT NOT INDICATED; GLUCOSE,URINE NEG (NEG); KETONE, URINE NEG (NEG); MUCUS URINE FEW /lpf (OCC); NITRITE,URINE NEG (NEG); PH, URINE 5.5 (5.0-8.5); SQUAMOUS EPITHELIAL CELL URINE <1 /hpf (0-5); URINE COLOR YELLOW (YELLW/STRAW)
[2017-06-29] MEDS ORDERED: SODIUM CHLOR 0.9% 1000 ML INJ 1,000 ML IV ONE (11:15)
--- NOTE | 2017-06-29 11:42 | RADRPT ---
EXAM DATE/TIME: 06/29/2017 10:44 [facility] COMPARISON: CHEST PA & LAT, April 18, 2017, 9:59. INDICATIONS : Bilateral hip pain, worse in the right hip. has been hurting off and on ever since his fall 6 months ago. MEDICAL HISTORY : H/O fall. Pain off and on ever since. SURGICAL HISTORY : None. ENCOUNTER: Initial ACUITY: 4 - 6 months PAIN SCORE: 6/10 LOCATION: Right hip/pelvis. FINDINGS: The femoral heads are well situated within the acetabular fossa. There moderate osteoarthritic change s. No acute fracture is seen. No destructive lesion is present. CONCLUSION: Degenerative changes in the hips bilaterally. No acute fracture identified. Khadar Em MD on June 29, 2017 at 11:40 Board Certified Radiologist. This report was verified electronically.
[2017-06-29] MEDS ORDERED: NORC5TAB PO (12:03)
[2017-06-29] MEDS ORDERED: ZANTTAB PO (12:03)
[2017-06-29] MEDS ORDERED: PROM25TA10 PO (12:03)
[2017-06-29 12:44] VITALS: BP 144/76
== END 2017-06-29 12:45 | disposition home or self-care (01) ==
LOC: NEPD 09:19
DX: K85.20 Alcohol induced acute pancreatitis without necrosis or infection (principal); M25.551 Pain in right hip; J44.9 Chronic obstructive pulmonary disease, unspecified; F10.10 Alcohol abuse, uncomplicated; F17.290 Nicotine dependence, other tobacco product, uncomplicated; F12.10 Cannabis abuse, uncomplicated
CPT/HCPCS: 72170; 80053; 81001; 83690; 85025; 96361; 96374; 96375; 99284; J2270; J2405; J7030

== ENCOUNTER 2017-07-03 19:44 | Emergency (ER) | payer SELFPAY ==
[~2017-07-03] VITALS: Ht 170.2 cm; Wt 78.0 kg
[~2017-07-03 19:44] MED LIST changes: -AZIT250T3 PO; +NORC5TAB PO; +POTA-163 PO; +PROM25TA10 PO; +ZANTTAB PO
[2017-07-03 19:46] VITALS: BP 189/82; PULSE 69; RESP 16; TEMP 98.4; O2SAT 100
[2017-07-03] MEDS ORDERED: SODIUM CHLOR 0.9% 1000 ML INJ 1,000 ML IV SCH (22:15)
[2017-07-03] MEDS ORDERED: ONDANSETRON HCL 4 MG/2 ML VIAL IVP ONE (22:15)
[2017-07-03] MEDS ORDERED: SODIUM CHLORIDE 0.9% FLUSH 10 ML FLUSH IV FLUSH PRN (22:15)
[2017-07-03 22:27] VITALS: O2SAT 100
[2017-07-03] MEDS ORDERED: MORPHINE SULFATE 4 MG/ML INJ IV PUSH ONE (22:30)
--- NOTE | 2017-07-03 22:30 | PD ---
HPI Chief Complaint: Abdominal Pain Time Seen by Provider: 22:15 Travel History International Travel<30 days: No Contact w/Intl Traveler<30days: No Traveled to known affect area: No History of Present Illness HPI Patient is a 62-year-old male who returns to the emergency room complaints of epigastric pain. Patient reports that he has been having abdominal pain for the past few weeks, reports that pain is predominantly to his epigastrium. He reports a burning sensation to his epigastrium with occasional nausea. He reports that it is very difficult for him to eat, reports that drinking cold fluids has helped with his symptoms. Patient was seen in emergency room on June 29, 2017, reports that he was told that his lipase was 730 in that he had pancreatitis. Patient reports that he is an alcoholic, reports that he drinks about 2-3 beers per night, that he drinks heavily on the weekend. He did have a beer today. Patient reports that this pain is not getting any better, reports that he was told to return to the emergency room for admission as patient did not improve. Patient denies any fevers or chills, denies any chest pain or shortness of breath. Patient with no other complaint at this time. PFSH Past Medical History Autoimmune Disease: No Blood Disorders: No Anxiety: Yes Depression: Yes Cancer: No Cardiovascular Problems: No COPD: Yes Cerebrovascular Accident: Yes (tia) Diabetes: No Diminished Hearing: Yes ([place]) Endocrine: No Gastrointestinal Disorders: No Genitourinary: No Immune Disorder: No Implanted Vascular Access Dvce: No Musculoskeletal: No Neurologic: No Psychiatric: Yes (Per patient, "since he was young") Reproductive: No Respiratory: Yes Immunizations Current: Yes Seizures: No Thyroid Disease: No Past Surgical History Abdominal Surgery: Yes (UMBILICAL HERNIA REPAIR A CHILD) Other Surgery: Yes (INGUINAL HERNIA) Social History Alcohol Use: Yes Tobacco Use: Yes (1/2 PPD) Substance Use: Yes (MARIJUANA ONCE A WEEK) Allergies-Medications (Allergen,Severity, Reaction): Coded Allergies: No Known Allergies (Verified , 07/03/17) Reported Meds & Prescriptions Reported Meds & Active Scripts Active Reported Potassium Chloride ER (Potassium Chloride) 20 Meq Tab 20 Meq PO DAILY Review of Systems General / Constitutional: No: Fever, Chills Eyes: No: Visual changes HENT: No: Headaches Cardiovascular: No: Chest Pain or Discomfort, Palpitations, Irregular Rhythm, Tachycardia, Diaphoresis Respiratory: No: Shortness of Breath Gastrointestinal: Positive: Nausea, Abdominal Pain, No: Vomiting, Diarrhea, Constipation Genitourinary: No: Dysuria Musculoskeletal: No: Pain Skin: No Rash Neurologic: No: Weakness Psychiatric: No: Depression Endocrine: No: Polydipsia Hematologic/Lymphatic: No: Easy Bruising Physical Exam Narrative GENERAL: mild distress SKIN: Focused skin assessment warm/dry. HEAD: Atraumatic. Normocephalic. EYES: Pupils equal and round. No scleral icterus. No injection or drainage. ENT: No nasal bleeding or discharge. Mucous membranes pink and moist. NECK: Trachea midline. No JVD. CARDIOVASCULAR: Regular rate and rhythm. No murmur appreciated. RESPIRATORY: No accessory muscle use. Clear to auscultation. Breath sounds equal bilaterally. GASTROINTESTINAL: Abdomen soft, tenderness to epigastrium, nondistended. Hepatic and splenic margins not palpable. MUSCULOSKELETAL: No obvious deformities. No clubbing. No cyanosis. No edema. NEUROLOGICAL: Awake and alert. No obvious cranial nerve deficits. Motor grossly within normal limits. Normal speech. PSYCHIATRIC: Appropriate mood and affect; insight and judgment normal. Data Data Last Documented VS Vital Signs Date Time Temp Pulse Resp B/P Pulse Ox O2 Delivery O2 Flow Rate FiO2 07/03/17 22:27 100 Room Air 07/03/17 19:46 98.4 69 16 189/82 Orders Complete Blood Count With Diff (07/03/17 22:15) Comprehensive Metabolic Panel (07/03/17 22:15) Lipase (07/03/17 22:15) Prothrombin Time / Inr (Pt) (07/03/17 22:15) Urinalysis - C+S If Indicated (07/03/17 22:15) Iv Access Insert/Monitor (07/03/17 22:15) Ecg Monitoring (07/03/17 22:15) Oximetry (07/03/17 22:15) Ondansetron Inj (Zofran Inj) (07/03/17 22:15) Sodium Chlor 0.9% 1000 Ml Inj (Ns 1000 M (07/03/17 22:15) Sodium Chloride 0.9% Flush (Ns Flush) (07/03/17 22:15) Electrocardiogram (07/03/17 22:15) Ct Abd/Pel W Iv Contrast(Rout) (07/03/17 22:23) Morphine Inj (Morphine Inj) (07/03/17 22:30) Iohexol 350 Inj (Omnipaque 350 Inj) (07/04/17 00:00) Labs Laboratory Tests Test 07/03/17 07/03/17 22:30 22:40 White Blood Count 6.4 TH/MM3 Red Blood Count 4.27 MIL/MM3 Hemoglobin 13.3 GM/DL Hematocrit 41.6 % Mean Corpuscular Volume 97.5 FL Mean Corpuscular Hemoglobin 31.2 PG Mean Corpuscular Hemoglobin 32.0 % Concent Red Cell Distribution Width 13.3 % Platelet Count 205 TH/MM3 Mean Platelet Volume 8.3 FL Neutrophils (%) (Auto) 57.8 % Lymphocytes (%) (Auto) 24.5 % Monocytes (%) (Auto) 9.7 % Eosinophils (%) (Auto) 5.1 % Basophils (%) (Auto) 2.9 % Neutrophils # (Auto) 3.7 TH/MM3 Lymphocytes # (Auto) 1.6 TH/MM3 Monocytes # (Auto) 0.6 TH/MM3 Eosinophils # (Auto) 0.3 TH/MM3 Basophils # (Auto) 0.2 TH/MM3 CBC Comment DIFF FINAL Differential Comment Prothrombin Time 10.7 SEC Prothromb Time International 1.0 RATIO Ratio Sodium Level 139 MEQ/L Potassium Level 4.3 MEQ/L Chloride Level 106 MEQ/L Carbon Dioxide Level 26.5 MEQ/L Anion Gap 7 MEQ/L Blood Urea Nitrogen 18 MG/DL Creatinine 1.46 MG/DL Estimat Glomerular Filtration 59 ML/MIN Rate Random Glucose 87 MG/DL Calcium Level 9.1 MG/DL Total Bilirubin 0.4 MG/DL Aspartate Amino Transf 81 U/L (AST/SGOT) Alanine Aminotransferase 70 U/L (ALT/SGPT) Alkaline Phosphatase 74 U/L Total Protein 8.0 GM/DL Albumin 3.3 GM/DL Lipase 1097 U/L Urine Color YELLOW Urine Turbidity CLEAR Urine pH 5.5 Urine Specific [place] 1.023 Urine Protein TRACE mg/dL Urine Glucose (UA) NEG mg/dL Urine Ketones NEG mg/dL Urine Occult Blood NEG Urine Nitrite NEG Urine Bilirubin NEG Urine Urobilinogen 2.0 MG/DL Urine Leukocyte Esterase NEG Urine RBC LESS THAN 1 /hpf Urine WBC 1 /hpf Microscopic Urinalysis Comment CULT NOT INDICATED MDM Medical Decision Making Medical Screen Exam Complete: Yes Emergency Medical Condition: Yes Interpretation(s) Vital Signs Date Time Temp Pulse Resp B/P Pulse Ox O2 Delivery O2 Flow Rate FiO2 07/03/17 19:46 98.4 69 16 189/82 100 Room Air Differential Diagnosis Differential includes pancreatitis, gastritis, GERD, peptic ulcer disease, biliary colic, acute cholecystitis Narrative Course Patient is a 62-year-old male who returns to emergency room after he was diagnosed with acute pancreatitis on June 29, 2017. After workup, patient had a lipase of 730, he was discharged home with instructions to decrease his alcohol intake as his pancreatitis is most likely due to his alcoholism. Patient reports that he has decreased his alcohol intake, reports he continues to have epigastric pain. Patient here for reevaluation of symptoms. 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 Plan to obtain lab work including lipase, will obtain CT abdomen pelvis to evaluate the pancreas. Will give IVF as well as pain medications. Vital Signs Date Time Temp Pulse Resp B/P Pulse Ox O2 Delivery O2 Flow Rate FiO2 07/03/17 22:27 100 Room Air 07/03/17 19:46 98.4 69 16 189/82 100 Room Air Laboratory Tests Test 07/03/17 07/03/17 22:30 22:40 White Blood Count 6.4 TH/MM3 (4.0-11.0) Red Blood Count 4.27 MIL/MM3 (4.50-5.90) Hemoglobin 13.3 GM/DL (13.0-17.0) Hematocrit 41.6 % (39.0-51.0) Mean Corpuscular Volume 97.5 FL (80.0-100.0) Mean Corpuscular Hemoglobin 31.2 PG (27.0-34.0) Mean Corpuscular Hemoglobin 32.0 % Concent (32.0-36.0) Red Cell Distribution Width 13.3 % (11.6-17.2) Platelet Count 205 TH/MM3 (150-450) Mean Platelet Volume 8.3 FL (7.0-11.0) Neutrophils (%) (Auto) 57.8 % (16.0-70.0) Lymphocytes (%) (Auto) 24.5 % (9.0-44.0) Monocytes (%) (Auto) 9.7 % (0.0-8.0) Eosinophils (%) (Auto) 5.1 % (0.0-4.0) Basophils (%) (Auto) 2.9 % (0.0-2.0) Neutrophils # (Auto) 3.7 TH/MM3 (1.8-7.7) Lymphocytes # (Auto) 1.6 TH/MM3 (1.0-4.8) Monocytes # (Auto) 0.6 TH/MM3 (0-0.9) Eosinophils # (Auto) 0.3 TH/MM3 (0-0.4) Basophils # (Auto) 0.2 TH/MM3 (0-0.2) CBC Comment DIFF FINAL Differential Comment Prothrombin Time 10.7 SEC (9.8-11.6) Prothromb Time International 1.0 RATIO Ratio Sodium Level 139 MEQ/L (136-145) Potassium Level 4.3 MEQ/L (3.5-5.1) Chloride Level 106 MEQ/L (98-107) Carbon Dioxide Level 26.5 MEQ/L (21.0-32.0) Anion Gap 7 MEQ/L (5-15) Blood Urea Nitrogen 18 MG/DL (7-18) Creatinine 1.46 MG/DL (0.60-1.30) Estimat Glomerular Filtration 59 ML/MIN (>89) Rate Random Glucose 87 MG/DL (74-106) Calcium Level 9.1 MG/DL (8.5-10.1) Total Bilirubin 0.4 MG/DL (0.2-1.0) Aspartate Amino Transf 81 U/L (15-37) (AST/SGOT) Alanine Aminotransferase 70 U/L (12-78) (ALT/SGPT) Alkaline Phosphatase 74 U/L (45-117) Total Protein 8.0 GM/DL (6.4-8.2) Albumin 3.3 GM/DL (3.4-5.0) Lipase 1097 U/L (73-393) Urine Color YELLOW (YELLW/STRAW) Urine Turbidity CLEAR (CLEAR) Urine pH 5.5 (5.0-8.5) Urine Specific [place] 1.023 (1.002-1.035) Urine Protein TRACE mg/dL (NEG-TRACE) Urine Glucose (UA) NEG mg/dL (NEG) Urine Ketones NEG mg/dL (NEG) Urine Occult Blood NEG (NEG) Urine Nitrite NEG (NEG) Urine Bilirubin NEG (NEG) Urine Urobilinogen 2.0 MG/DL (LESS THAN 2.0) Urine Leukocyte Esterase NEG (NEG) Urine RBC LESS THAN 1 /hpf (0-3) Urine WBC 1 /hpf (0-5) Microscopic Urinalysis Comment CULT NOT INDICATED Labs reviewed CT of abdomen and pelvis with no acute findings, pancreas is within normal limits. I offered patient admission to the hospital, patient refuses. Discussed need for patient to quit drinking alcohol. He will return to ER as needed Diagnosis Primary Impression: Pancreatitis Qualified Code: K85.20 - Alcohol-induced acute pancreatitis, unspecified complication status Additional Impressions: Dehydration Renal insufficiency Patient Instructions: Narcotic given in the ED, General Instructions Additional Instructions: Please stop drinking alcohol Eat a bland diet Return to ER as needed or if symptoms worsen or progress Please follow up with your primary care doctor Med/Other Pt SpecificInfo: Prescription(s) given Scripts Oxycodone-Acetaminophen (Percocet)5-325 mg Tab1 Tab PO Q6H PRN (PAIN) #6 TAB Ref 0 Prov:Emmy Benjamin DO 07/04/17 Ondansetron (Zofran)4 Mg Tab4 Mg PO Q6HR PRN (NAUSEA OR VOMITING) #20 TAB Ref 0 Prov:Emmy Benjamin DO 07/04/17 Disposition: 01 DISCHARGE HOME Condition: Stable Emmy Benjamin DO Jul 03, 2017 22:30
[2017-07-03 22:55] LABS: PROTHROMBIN TIME - PATIENT 10.7 SEC (9.8-11.6)
[2017-07-03 23:07] LABS: ALKALINE PHOSPHATASE 74 U/L (45-117); ALT (GPT) 70 U/L (12-78); TOTAL BILIRUBIN ADULT 0.4 MG/DL (0.2-1.0)
[2017-07-03 23:09] LABS: BLOOD, URINE NEG (NEG); COMMENT (UR) CULT NOT INDICATED; CULTURE IF INDICATED CULT NOT INDICATED; GLUCOSE,URINE NEG (NEG); KETONE, URINE NEG (NEG); NITRITE,URINE NEG (NEG); PH, URINE 5.5 (5.0-8.5); URINE COLOR YELLOW (YELLW/STRAW)
[2017-07-03 23:12] LABS: AUTOMATED NEUTROPHIL # 3.7 TH/MM3 (1.8-7.7); BASOPHIL # 0.2 TH/MM3 (0-0.2); BASOPHIL % 2.9 % (0.0-2.0); EOSINOPHIL # 0.3 TH/MM3 (0-0.4); EOSINOPHIL % 5.1 % (0.0-4.0); HEMATOCRIT 41.6 % (39.0-51.0); HEMO FLAGS DIFF FINAL; LYMPH % 24.5 % (9.0-44.0); LYMPHOCYTE # 1.6 TH/MM3 (1.0-4.8); MEAN CELL VOLUME 97.5 FL (80.0-100.0); MEAN CORPUSCULAR HEMOGLOBIN 31.2 PG (27.0-34.0); MONO % 9.7 % (0.0-8.0); NEUT % 57.8 % (16.0-70.0); PLATELET COUNT 205 TH/MM3 (150-450); RED BLOOD COUNT 4.27 MIL/MM3 (4.50-5.90); RED CELL DISTRIBUTION WIDTH 13.3 % (11.6-17.2); WHITE BLOOD COUNT 6.4 TH/MM3 (4.0-11.0)
[2017-07-03 23:20] LABS: ANION GAP 7 MEQ/L (5-15); AST (GOT) 81 U/L (15-37); BICARBONATE 26.5 MEQ/L (21.0-32.0); BLOOD UREA NITROGEN 18 MG/DL (7-18); CHLORIDE 106 MEQ/L (98-107); GLOMERULAR FILTRATION RATE 59 ML/MIN (>89); POTASSIUM 4.3 MEQ/L (3.5-5.1); SODIUM (NA) 139 MEQ/L (136-145)
[2017-07-04] MEDS ORDERED: IOHEXOL 350 MG/ML 10 ML VIAL (for RAD DIAG) IV ONE
--- NOTE | 2017-07-04 00:22 | RADRPT ---
EXAM DATE/TIME: 07/03/2017 23:57 [facility] COMPARISON: No previous studies available for comparison. INDICATIONS : Upper abdominal pain X 2 weeks. IV CONTRAST: 95 cc Omnipaque 350 (iohexol) IV ORAL CONTRAST: No oral contrast ingested. RADIATION DOSE: 6.86 CTDIvol (mGy) MEDICAL HISTORY : Chronic obstructive pulmonary disease. Pancreatitis. TB, umbilical hernia SURGICAL HISTORY : None. ENCOUNTER: Subsequent ACUITY: 2 weeks PAIN SCALE: 7/10 LOCATION: abdomen TECHNIQUE: Volumetric scanning of the abdomen and pelvis was performed. Using automated exposure control and ad justment of the mA and/or kV according to patient size, radiation dose was kept as low as reasonably achievable to obtain optimal diagnostic quality images. DICOM format image data is available electro nically for review and comparison. FINDINGS: LOWER LUNGS: The visualized lower lungs are clear. LIVER: Homogeneous density without lesion. There is no dilation of the biliary tree. No calcified gallston es. SPLEEN: Normal size without lesion. PANCREAS: Within normal limits. KIDNEYS: Normal in size and shape. There is no mass, stone or hydronephrosis. ADRENAL GLANDS: Within normal limits. VASCULAR: There is no aortic aneurysm. BOWEL/MESENTERY: The stomach, small bowel, and colon demonstrate no acute abnormality. There is no free intraperitone al air or fluid. ABDOMINAL WALL: Within normal limits. RETROPERITONEUM: There is no lymphadenopathy. Multiple, benign-appearing phleboliths in the deep pelvis BLADDER: No wall thickening or mass. REPRODUCTIVE: Within normal limits. INGUINAL: There is no lymphadenopathy or hernia. MUSCULOSKELETAL: Within normal limits for patient age. CONCLUSION: Essentially negative exam with no acute intraperitoneal or pelvic process to explain current cli nical symptoms. Hiren Lafleur MD on July 04, 2017 at 0:13 Board Certified Radiologist. This report was verified electronically.
[2017-07-04] MEDS ORDERED: PERC5TAB12 PO (01:38)
[2017-07-04] MEDS ORDERED: ZOFR4TAB PO (01:38)
--- NOTE | 2017-07-04 15:49 | EKG ---
Date Performed: 07/03/2017 Time Performed: 22:36:04 PTAGE: 62 years EKG: SINUS BRADYCARDIA Slight ST changes anterolaterally of early repolarization Otherwise withi n normal limits BORDERLINE ECG PREVIOUS TRACING : 12/28/2016 08.06 DOCTOR: Lit Randhawa Interpretating Date/Time 07/04/2017 15:47:47
== END 2017-07-04 01:58 | disposition home or self-care (01) ==
LOC: NEPC 19:44
DX: K85.20 Alcohol induced acute pancreatitis without necrosis or infection (principal); E86.0 Dehydration; N28.9 Disorder of kidney and ureter, unspecified; R11.0 Nausea; R94.31 Abnormal electrocardiogram [ECG] [EKG]; H91.90 Unspecified hearing loss, unspecified ear; F17.200 Nicotine dependence, unspecified, uncomplicated; Z86.59 Personal history of other mental and behavioral disorders; Z87.09 Personal history of other diseases of the respiratory system; Z86.79 Personal history of other diseases of the circulatory system
CPT/HCPCS: 74177; 80053; 81001; 83690; 85025; 85610; 93005; 96361; 96374; 96375; 99285; J2270; J2405; J7030; Q9967

== ENCOUNTER 2017-07-05 21:56 | Emergency (ER) | payer SELFPAY ==
[~2017-07-05] VITALS: Ht 182.9 cm; Wt 80.0 kg
[~2017-07-05 21:56] MED LIST changes: -NORC5TAB PO; +PERC5TAB12 PO; -PROM25TA10 PO; -ZANTTAB PO; +ZOFR4TAB PO
[2017-07-05 21:57] VITALS: BP 139/76; PULSE 71; RESP 16; TEMP 98.9; O2SAT 100
--- NOTE | 2017-07-05 22:07 | PD ---
Physical Exam Date Seen by Provider: Jul 05, 2017 Time Seen by Provider: 22:04 Narrative 62 y/o male returns with worsening central abdominal pain. Patient was seen earlier today, but pain is worsening. Pain 10/10 now. No Vomiting or Diarrhea. No Fever. Pain has been worsening for 2 weeks. Vital Signs reviewed. Patient is Stable and awaiting Bed Placement. Data Data Last Documented VS Vital Signs Date Time Temp Pulse Resp B/P (MAP) Pulse Ox O2 Delivery O2 Flow Rate FiO2 07/05/17 21:57 98.9 71 16 139/76 (97) 100 MDM Medical Record Reviewed: Yes Supervised Visit with FLORES: Yes Condition: Stable Smooth Potter Jul 05, 2017 22:07
[2017-07-05] MEDS ORDERED: MORPHINE SULFATE 8 MG/ML INJ IV PUSH ONE (23:15)
[2017-07-05 23:29] VITALS: BP 172/80; PULSE 64; RESP 20; O2SAT 99
[2017-07-05 23:30] VITALS: BP 160/75; PULSE 65; RESP 20; O2SAT 99
[2017-07-05 23:39] LABS: AUTOMATED NEUTROPHIL # 3.6 TH/MM3 (1.8-7.7); BASOPHIL % 0.8 % (0.0-2.0); EOSINOPHIL # 0.4 TH/MM3 (0-0.4); EOSINOPHIL % 5.9 % (0.0-4.0); HEMATOCRIT 38.3 % (39.0-51.0); HEMO FLAGS DIFF FINAL; LYMPH % 26.1 % (9.0-44.0); LYMPHOCYTE # 1.6 TH/MM3 (1.0-4.8); MEAN CELL VOLUME 96.1 FL (80.0-100.0); MEAN CORPUSCULAR HEMOGLOBIN 31.5 PG (27.0-34.0); MEAN CORPUSCULAR HGB CONC 32.7 % (32.0-36.0); MONO % 8.1 % (0.0-8.0); NEUT % 59.1 % (16.0-70.0); PLATELET COUNT 198 TH/MM3 (150-450); RED BLOOD COUNT 3.98 MIL/MM3 (4.50-5.90); RED CELL DISTRIBUTION WIDTH 12.9 % (11.6-17.2)
[2017-07-06] MEDS: SODIUM CHLORIDE 0.9% FLUSH 10 ML FLUSH IV FLUSH PRN ×2 (00:04→04:38)
--- NOTE | 2017-07-06 00:05 | PD ---
HPI Chief Complaint: Abdominal Pain Time Seen by Provider: 22:50 Travel History International Travel<30 days: No Contact w/Intl Traveler<30days: No Traveled to known affect area: No History of Present Illness HPI Patient 62 years old. He arrives describing epigastric abdominal pain. Chronic in nature. It's worse with palpation. No fever or vomiting. Pain is worse with palpation. Pain is constant. Patient has a history of drinking alcohol however states he's had one beer in the past 5 days. PFSH Past Medical History Medical History: Denies Significant Hx Autoimmune Disease: No Blood Disorders: No Anxiety: Yes Depression: Yes Cancer: No Cardiovascular Problems: No COPD: Yes Cerebrovascular Accident: Yes (tia) Diabetes: No Diminished Hearing: No Endocrine: No Gastrointestinal Disorders: No Genitourinary: No Immune Disorder: No Implanted Vascular Access Dvce: No Musculoskeletal: No Neurologic: No Psychiatric: Yes (Per patient, "since he was young") Reproductive: No Respiratory: Yes Immunizations Current: Yes Seizures: No Thyroid Disease: No Tetanus Vaccination: > 5 Years Influenza Vaccination: No Past Surgical History Abdominal Surgery: Yes (UMBILICAL HERNIA REPAIR A CHILD) Other Surgery: Yes (INGUINAL HERNIA) Social History Alcohol Use: Yes (3 cases beer on weekend) Tobacco Use: Yes (1/2 pk per day) Substance Use: Yes (crack sometimes) Allergies-Medications (Allergen,Severity, Reaction): Coded Allergies: No Known Allergies (Verified , 07/05/17) Reported Meds & Prescriptions Reported Meds & Active Scripts Active Percocet (Oxycodone-Acetaminophen) 5-325 mg Tab 1 Tab PO Q6H PRN Zofran (Ondansetron HCl) 4 Mg Tab 4 Mg PO Q6HR PRN Reported Potassium Chloride ER (Potassium Chloride) 20 Meq Tab 20 Meq PO DAILY Review of Systems Except as stated in HPI: all other systems reviewed are Neg Physical Exam Narrative GENERAL: 62-year-old male well-nourished well-developed no acute distress SKIN: Warm and dry. HEAD: Atraumatic. Normocephalic. EYES: Pupils equal and round. No scleral icterus. No injection or drainage. ENT: No nasal bleeding or discharge. Mucous membranes pink and moist. NECK: Trachea midline. No JVD. CARDIOVASCULAR: Regular rate and rhythm. RESPIRATORY: No accessory muscle use. Clear to auscultation. Breath sounds equal bilaterally. GASTROINTESTINAL: Abdomen soft, non-tender, nondistended. Hepatic and splenic margins not palpable. MUSCULOSKELETAL: Extremities without clubbing, cyanosis, or edema. No obvious deformities. NEUROLOGICAL: Awake and alert. No obvious cranial nerve deficits. Motor grossly within normal limits. Five out of 5 muscle strength in the arms and legs. Normal speech. PSYCHIATRIC: Appropriate mood and affect; insight and judgment normal. Data Data Last Documented VS Vital Signs Date Time Temp Pulse Resp B/P (MAP) Pulse Ox O2 Delivery O2 Flow Rate FiO2 07/06/17 06:46 66 22 145/81 (102) 100 07/05/17 23:30 Room Air 07/05/17 21:57 98.9 Vital signs reviewed Orders Orders Complete Blood Count With Diff (07/05/17 22:50) Comprehensive Metabolic Panel (07/05/17 22:50) Lipase (07/05/17 22:50) Iv Access Insert/Monitor (07/05/17 22:50) Ecg Monitoring (07/05/17 22:50) Oximetry (07/05/17 22:50) Sodium Chloride 0.9% Flush (Ns Flush) (07/05/17 23:00) Morphine Inj (Morphine Inj) (07/05/17 23:15) Alcohol (Ethanol) (07/05/17 23:11) Sodium Chlor 0.9% 1000 Ml Inj (Ns 1000 M (07/06/17 00:45) Hydromorphone Pf Inj (Dilaudid Pf Inj) (07/06/17 00:45) Ondansetron Inj (Zofran Inj) (07/06/17 00:45) Labs Laboratory Tests Test 07/05/17 23:05 07/05/17 23:20 White Blood Count 6.0 TH/MM3 Red Blood Count 3.98 MIL/MM3 Hemoglobin 12.5 GM/DL Hematocrit 38.3 % Mean Corpuscular Volume 96.1 FL Mean Corpuscular Hemoglobin 31.5 PG Mean Corpuscular Hemoglobin Concent 32.7 % Red Cell Distribution Width 12.9 % Platelet Count 198 TH/MM3 Mean Platelet Volume 8.9 FL Neutrophils (%) (Auto) 59.1 % Lymphocytes (%) (Auto) 26.1 % Monocytes (%) (Auto) 8.1 % Eosinophils (%) (Auto) 5.9 % Basophils (%) (Auto) 0.8 % Neutrophils # (Auto) 3.6 TH/MM3 Lymphocytes # (Auto) 1.6 TH/MM3 Monocytes # (Auto) 0.5 TH/MM3 Eosinophils # (Auto) 0.4 TH/MM3 Basophils # (Auto) 0.0 TH/MM3 CBC Comment DIFF FINAL Differential Comment Blood Urea Nitrogen 20 MG/DL Creatinine 2.03 MG/DL Random Glucose 82 MG/DL Total Protein 8.0 GM/DL Albumin 3.3 GM/DL Calcium Level 8.8 MG/DL Alkaline Phosphatase 74 U/L Aspartate Amino Transf (AST/SGOT) 82 U/L Alanine Aminotransferase (ALT/SGPT) 69 U/L Total Bilirubin 0.4 MG/DL Sodium Level 140 MEQ/L Potassium Level 4.3 MEQ/L Chloride Level 104 MEQ/L Carbon Dioxide Level 29.5 MEQ/L Anion Gap 7 MEQ/L Estimat Glomerular Filtration Rate 41 ML/MIN Lipase 853 U/L Ethyl Alcohol Level LESS THAN 3 MG/DL MDM Medical Decision Making Medical Screen Exam Complete: Yes Emergency Medical Condition: Yes Medical Record Reviewed: Yes Differential Diagnosis Gastritis, pancreatitis, appendicitis, acute cholecystitis, ascending cholangitis, AAA, perforated viscous, mesenteric ischemia, hepatitis, cystitis, hydronephrosis/hydroureter/nephroureter calculus, mesenteric adenitis, biliary colic Narrative Course CBC & BMP Diagram 07/05/17 23:05 Total Protein 8.0, Albumin 3.3 L, Calcium Level 8.8, Alkaline Phosphatase 74, Aspartate Amino Transf (AST/SGOT) 82 H, Alanine Aminotransferase (ALT/SGPT) 69, Total Bilirubin 0.4 Lipase 853 Alcohol less than 3 The patient is resting comfortably and feels better, is alert and in no distress. The patients results and examination findings were discussed. The repeat examination is unremarkable and benign. The history, exam, diagnostic testing, and current condition do not suggest any significant pathology to warrant further testing, continued ED treatment, admission, or surgical evaluation at this point. The vital signs have been stable. The patient does not have uncontrollable pain, intractable vomiting, or other significant symptoms. The patient's condition is stable and appropriate for discharge. The patient will pursue further outpatient evaluation with a primary care physician or other designated or consulting physician as indicated in the discharge instructions. The patient expressed understanding and was agreeable with this plan. Diagnosis Primary Impression: Renal insufficiency Additional Impression: Pancreatitis Qualified Codes: K86.1 - Other chronic pancreatitis Referrals: Primary Care Physician 2 days Additional Instructions: You have a choice when it comes to health care, and we are glad that you chose [facility]. Hopefully, we have met your expectations on today's visit. You are welcome to return to [facility] at any time, as we are committed to meeting the health care needs of our community. Med/Other Pt SpecificInfo: No Change to Meds Disposition: 01 DISCHARGE HOME Condition: Khadar Tineo MD Jul 06, 2017 00:04
[2017-07-06 00:15] LABS: ANION GAP 7 MEQ/L (5-15); AST (GOT) 82 U/L (15-37); BICARBONATE 29.5 MEQ/L (21.0-32.0); BLOOD UREA NITROGEN 20 MG/DL (7-18); CHLORIDE 104 MEQ/L (98-107); GLOMERULAR FILTRATION RATE 41 ML/MIN (>89); POTASSIUM 4.3 MEQ/L (3.5-5.1); SODIUM (NA) 140 MEQ/L (136-145)
[2017-07-06 00:17] LABS: ALKALINE PHOSPHATASE 74 U/L (45-117); ALT (GPT) 69 U/L (12-78); TOTAL BILIRUBIN ADULT 0.4 MG/DL (0.2-1.0)
[2017-07-06] MEDS ORDERED: HYDROmorphone HCL PF 1 MG/ML VIAL IV PUSH ONE (00:45)
[2017-07-06] MEDS ORDERED: SODIUM CHLOR 0.9% 1000 ML INJ 1,000 ML IV ONE (00:45)
[2017-07-06] MEDS ORDERED: ONDANSETRON HCL 4 MG/2 ML VIAL IV PUSH ONE (00:45)
[2017-07-06 01:32] VITALS: BP 151/78; PULSE 57; RESP 20; O2SAT 99
[2017-07-06 04:37] VITALS: RESP 20
[2017-07-06 06:46] VITALS: BP 145/81
== END 2017-07-06 06:48 | disposition home or self-care (01) ==
LOC: NEPD 21:56
DX: N28.9 Disorder of kidney and ureter, unspecified (principal); K86.1 Other chronic pancreatitis; J44.9 Chronic obstructive pulmonary disease, unspecified; F17.200 Nicotine dependence, unspecified, uncomplicated
CPT/HCPCS: 80053; 80307; 83690; 85025; 96361; 96374; 96375; 99284; J1170; J2270; J2405; J7030

== ENCOUNTER 2017-07-09 06:10 | Emergency (ER) | payer SELFPAY ==
[~2017-07-09] VITALS: Ht 182.9 cm; Wt 81.8 kg
[2017-07-09 06:11] VITALS: BP 185/91; PULSE 70; RESP 16; TEMP 99.1; O2SAT 99
[2017-07-09 06:30] VITALS: BP 182/90; PULSE 61; RESP 18; O2SAT 100
[2017-07-09] MEDS ORDERED: TRAM50TA PO (07:41)
[2017-07-09] MEDS ORDERED: PROM25TA10 PO (07:41)
[2017-07-09] MEDS ORDERED: ONDANSETRON ODT 4 MG TAB PO ONE (07:45)
[2017-07-09] MEDS ORDERED: oxyCODONE/ACETAMINOPHEN 5 MG/325 MG TAB PO ONE (07:45)
--- NOTE | 2017-07-09 07:49 | PD ---
HPI Chief Complaint: Abdominal Pain Time Seen by Provider: 07:18 Travel History International Travel<30 days: No Contact w/Intl Traveler<30days: No Traveled to known affect area: No History of Present Illness HPI This patient complains of abdominal pain. He is a frequent visitor for pancreatitis. He is trying to cut back alcohol. He denies drinking in the last couple days. No fever or vomiting or diarrhea. Pain is located in the epigastrium. Symptoms severity is mild to moderate. No alleviating factors. Duration is chronic over months to years with frequent flares PFSH Past Medical History Autoimmune Disease: No Blood Disorders: No Anxiety: Yes Depression: Yes Cancer: No Cardiovascular Problems: No COPD: Yes Cerebrovascular Accident: Yes (tia) Diabetes: No Diminished Hearing: No Endocrine: No Gastrointestinal Disorders: No GERD: Yes Genitourinary: No Immune Disorder: No Implanted Vascular Access Dvce: No Musculoskeletal: No Neurologic: No Psychiatric: Yes (Per patient, "since he was young") Reproductive: No Respiratory: Yes Immunizations Current: Yes Pancreatitis: Yes (seen 3x this month (June 2017) for pancreatitis s/s) Seizures: No Thyroid Disease: No Tetanus Vaccination: > 5 Years Influenza Vaccination: No Past Surgical History Abdominal Surgery: Yes (UMBILICAL HERNIA REPAIR A CHILD) Other Surgery: Yes (INGUINAL HERNIA) Social History Alcohol Use: No (pt states he hasn't drank any alcohol since Wednesday; hx of daily ETOH) Tobacco Use: Yes (2-4 cigarettes/day ) Substance Use: No (pt states he hasn't drank any alcohol since Wednesday; hx of crack use) Allergies-Medications (Allergen,Severity, Reaction): Coded Allergies: No Known Allergies (Verified , 07/05/17) Reported Meds & Prescriptions Reported Meds & Active Scripts Active Phenergan (Promethazine HCl) 25 Mg Tablet 25 Mg PO Q6H PRN Tramadol (Tramadol HCl) 50 Mg Tab 50 Mg PO Q6H PRN Reported Potassium Chloride ER (Potassium Chloride) 20 Meq Tab 20 Meq PO DAILY Review of Systems General / Constitutional: No: Fever Eyes: No: Visual changes HENT: No: Headaches Cardiovascular: No: Chest Pain or Discomfort Respiratory: No: Shortness of Breath Gastrointestinal: Positive: Nausea, Abdominal Pain Genitourinary: No: Dysuria Musculoskeletal: No: Pain Skin: No Rash Neurologic: No: Weakness Psychiatric: No: Depression Endocrine: No: Polydipsia Hematologic/Lymphatic: No: Easy Bruising Physical Exam Narrative GENERAL: Well-nourished, well-developed patient in no apparent distress. SKIN: Focused skin assessment reveals no rash and nodules. Skin is Warm and dry. HEAD: Atraumatic. Normocephalic. EYES: Pupils equal and round. No scleral icterus. No injection or drainage. ENT: No nasal bleeding or discharge. Mucous membranes pink and moist. NECK: Trachea midline. No JVD. CARDIOVASCULAR: Regular rate and rhythm. No murmur appreciated. RESPIRATORY: No accessory muscle use. Clear to auscultation. Breath sounds equal bilaterally. GASTROINTESTINAL: Abdomen soft, non-tender, nondistended. Hepatic and splenic margins not palpable. MUSCULOSKELETAL: No obvious deformities. No clubbing. No cyanosis. No edema. NEUROLOGICAL: Awake and alert. No obvious cranial nerve deficits. Motor grossly within normal limits. Normal speech. PSYCHIATRIC: Appropriate mood and affect; insight and judgment normal. Data Data Last Documented VS Vital Signs Date Time Temp Pulse Resp B/P (MAP) Pulse Ox O2 Delivery O2 Flow Rate FiO2 07/09/17 06:30 61 18 182/90 (120) 100 Room Air 07/09/17 06:11 99.1 Orders Orders Oxycodone-Acetamin 5-325 Mg (Percocet (07/09/17 07:45) Ondansetron Odt (Zofran Odt) (07/09/17 07:45) MDM Medical Decision Making Medical Screen Exam Complete: Yes Emergency Medical Condition: Yes Medical Record Reviewed: Yes Differential Diagnosis Differential diagnosis includes pancreatitis, biliary colic, hepatitis, GERD, peptic ulcer disease. Narrative Course I have reviewed the patient's electronic medical record. Patient is here frequently for the same thing. He was seen here 4 days ago. He had CT 6 days ago which was normal Patient has had multiple recent visits for the same thing. CT scan recently was normal. He has a soft benign nontender abdomen and does not look to be in any pain. He has for medication. I gave him 2 pain pills and a Zofran dose here Prescription written for tramadol and Phenergan to use as needed He should avoid alcohol all together and use relative bowel rest and follow-up with primary care. I gave him the information handout on the [facility] Diagnosis Primary Impression: Abdominal pain Qualified Codes: R10.13 - Epigastric pain Additional Instructions: The patient was advised to follow up with their physician and return if they worsen. The patient was warned about potential sedation for the medications they will receive on prescription. Med/Other Pt SpecificInfo: Prescription(s) given Scripts Promethazine (Phenergan) 25 Mg Tablet 25 MG PO Q6H Y for NAUSEA OR VOMITING, #12 TAB 0 Refills Prov: Rodney Taylor MD 07/09/17 Tramadol (Tramadol) 50 Mg Tab 50 MG PO Q6H Y for PAIN, #20 TAB 0 Refills Prov: Rodney Talyor MD 07/09/17 Disposition: 01 DISCHARGE HOME Condition: Stable Rodney Taylor MD Jul 09, 2017 07:49
== END 2017-07-09 08:06 | disposition home or self-care (01) ==
LOC: NEPC 06:10
DX: R10.13 Epigastric pain (principal); K85.90 Acute pancreatitis without necrosis or infection, unspecified; F41.9 Anxiety disorder, unspecified; F32.9 Major depressive disorder, single episode, unspecified; J44.9 Chronic obstructive pulmonary disease, unspecified; K21.9 Gastro-esophageal reflux disease without esophagitis; F17.210 Nicotine dependence, cigarettes, uncomplicated; Z79.899 Other long term (current) drug therapy; Z86.73 Personal history of transient ischemic attack (TIA), and cerebral infarction without residual deficits
CPT/HCPCS: 99284